=== PATIENT | male | born 1985 | race American Indian/Alaskan Native ===

== ENCOUNTER 2016-12-02 11:43 | Emergency (ER) | payer OTHER ==
[~2016-12-02] VITALS: Ht 190.5 cm; Wt 115.7 kg
[2016-12-02 11:54] VITALS: TEMP 97.6
[2016-12-02 13:19] VITALS: BP 134/71
== END 2016-12-02 13:23 | disposition home or self-care (01) ==
LOC: ED 11:43
DX: R07.89 Other chest pain (principal)
CPT/HCPCS: 93005; 99282